=== PATIENT | female | born 1960 | race Caucasian/White ===

== ENCOUNTER 2016-10-18 08:16 | Emergency (ER) | payer OTHER ==
[~2016-10-18] VITALS: Ht 157.5 cm; Wt 62.7 kg
[2016-10-18 08:18] VITALS: BP 113/74; TEMP 97.9
[2016-10-18] MEDS ORDERED: CRINONE4% (08:21)
[2016-10-18] MEDS ORDERED: PROMETRIUM100 MG PO (08:22)
[2016-10-18] MEDS ORDERED: ESTRACE 1MG1 MG/TAB PO (08:22)
[2016-10-18] MEDS ORDERED: PROTONIX20 MG PO (08:22)
[2016-10-18 09:04] LABS: PH 6 (5-8); SQUAMOUS EPITHELIAL 0-2 /hpf; URINE APPEARANCE Clear; URINE BACTERIA None Seen /hpf; URINE BILIRUBIN Negative (NEGATIVE); URINE BLOOD Negative (NEGATIVE); URINE COLOR Colorless; URINE GLUCOSE Negative (NEGATIVE); URINE KETONE Negative (NEGATIVE); URINE RBC 0-2 /hpf; URINE UROBILINOGEN Negative (NEGATIVE); URINE WBC 0-2 /hpf
[2016-10-18 09:21] LABS: BASO # 0.1 (0.0-0.2); BASO % 1.8 % (0.0-2.0); EOS # 0.3 (0.0-0.7); EOS % 4.7 % (0-4.0); GRAN # 3.6 (1.4-6.5); GRAN % 64.1 % (42.2-75.2); HEMATOCRIT 39.2 % (37.0-47.0); HEMOGLOBIN 13.3 g/dl (12.5-16.0); LYMPH # 1.2 (1.2-3.4); LYMPH % 21.6 % (20.0-51.0); MEAN CELL VOLUME 87 fl (80.0-100.0); MEAN CORPUSCULAR HEMOGLOBIN 29 pg (27.0-31.0); MEAN CORPUSCULAR HGB CONC 34 g/dl (33.0-37.0); MEAN PLATELET VOLUME 9.5 fl (7.4-10.4); MONO # 0.4 (0.1-0.6); MONO % 7.3 % (1.7-9.3); PLATELET COUNT 337 K/mm3 (130-400); RED BLOOD COUNT 4.53 M/mm3 (4.10-5.30); REDCELL DISTRIBUTION WIDTH-CV 13.2 % (11.5-14.5); WHITE BLOOD COUNT 5.6 K/mm3 (4.8-10.8)
[2016-10-18 09:44] LABS: ADJUSTED CALCIUM 8.5 mg/dL (8.4-10.2); ALANINE AMINOTRANSFERASE 21 U/L (9-52); ALBUMIN 4.5 gm/dL (3.5-5.0); ALKALINE PHOSPHATASE 81 U/L (50-136); ANION GAP 14 mmol/L (7-16); BILIRUBIN,TOTAL 0.7 mg/dL (0.0-1.0); BLOOD UREA NITROGEN 8 mg/dL (7-17); CALCIUM 8.9 mg/dL (8.4-10.2); CARBON DIOXIDE 21 mmol/L (22-30); CHLORIDE 106 mmol/L (98-107); CREATININE, serum 0.68 mg/dL (0.52-1.25); GLUCOSE 74 mg/dL (74-106); POTASSIUM 4.1 mmol/L (3.4-5.0); SODIUM 141 mmol/L (137-145); TOTAL PROTEIN 7.2 gm/dL (6.4-8.2)
[2016-10-18] MEDS ORDERED: TYLENOL W/COD1 UDTAB PO (09:58)
[2016-10-18] MEDS ORDERED: VOLTAREN 75 DR75 MG PO (10:02)
[2016-10-18] MEDS ORDERED: FLEXERIL 1010 MG/TAB PO (10:02)
[2016-10-18 10:07] LABS: C-REACTIVE PROTEIN < 0.5 mg/dL (0.0-0.9)
[2016-10-18 10:09] VITALS: PULSE 66
== END 2016-10-18 10:10 | disposition home or self-care (01) ==
LOC: COL.ER 08:16
PROVIDERS: Emergency Medicine
DX: R10.9 Unspecified abdominal pain (principal); M54.9 Dorsalgia, unspecified; Z87.891 Personal history of nicotine dependence

== ENCOUNTER → 2017-04-03 | Outpatient (CLI) | payer OTHER ==
[~2017-04-03] MED LIST: CRINONE4%; ESTRACE 1MG1 MG/TAB PO; FLEXERIL 1010 MG/TAB PO; PROMETRIUM100 MG PO; PROTONIX20 MG PO; TYLENOL W/COD1 UDTAB PO; VOLTAREN 75 DR75 MG PO
== END ==
LOC: COL.RAD 08:53
DX: M51.36 Other intervertebral disc degeneration, lumbar region (principal); M51.16 Intervertebral disc disorders with radiculopathy, lumbar region; M48.061 Spinal stenosis, lumbar region without neurogenic claudication

== ENCOUNTER → 2017-07-10 | Outpatient (CLI) | payer OTHER ==
[2017-07-10 12:33] LABS: ALBUMIN 4.4 gm/dL (3.5-5.0); BILIRUBIN,TOTAL 0.3 mg/dL (0.0-1.0); CALCIUM 9.6 mg/dL (8.4-10.2); CHOLESTEROL RISK RATIO 2.6; CREATININE, serum 0.84 mg/dL (0.52-1.25); POTASSIUM 4.6 mmol/L (3.4-5.0); TOTAL PROTEIN 6.9 gm/dL (6.4-8.2)
== END ==
LOC: ZLAB.FHCC 12:05
DX: Z01.89 Encounter for other specified special examinations (principal)

== ENCOUNTER → 2017-07-24 | Outpatient (CLI) | payer OTHER | LOC: COL.RAD 07-17 09:45 | DX: M75.82 Other shoulder lesions, left shoulder (principal); M75.22 Bicipital tendinitis, left shoulder; M19.012 Primary osteoarthritis, left shoulder ==

== ENCOUNTER → 2017-08-10 | Outpatient (CLI) | payer OTHER | LOC: COL.RAD 10:08 | DX: N20.0 Calculus of kidney (principal); K76.0 Fatty (change of) liver, not elsewhere classified ==

== ENCOUNTER → 2017-09-04 | Outpatient (CLI) | payer OTHER ==
[2017-09-04 10:11] LABS: BASO # 0.1 (0.0-0.2); EOS # 0.3 (0.0-0.7); EOS % 5.1 % (0-4.0); GRAN # 3.2 (1.4-6.5); GRAN % 62.1 % (42.2-75.2); HEMATOCRIT 42.7 % (37.0-47.0); HEMOGLOBIN 13.8 g/dl (12.5-16.0); LYMPH # 1.3 (1.2-3.4); LYMPH % 24.9 % (20.0-51.0); MEAN CELL VOLUME 87 fl (80.0-100.0); MEAN CORPUSCULAR HEMOGLOBIN 28 pg (27.0-31.0); MEAN CORPUSCULAR HGB CONC 32 g/dl (33.0-37.0); MEAN PLATELET VOLUME 9.5 fl (7.4-10.4); MONO # 0.3 (0.1-0.6); MONO % 5.5 % (1.7-9.3); PLATELET COUNT 340 K/mm3 (130-400); RED BLOOD COUNT 4.89 M/mm3 (4.10-5.30); REDCELL DISTRIBUTION WIDTH-CV 13.3 % (11.5-14.5)
[2017-09-04 10:14] LABS: PROTHROMBIN TIME 11.1 SECONDS (9.7-12.8)
[2017-09-04 10:32] LABS: CREATININE, serum 0.78 mg/dL (0.52-1.25); POTASSIUM 4.4 mmol/L (3.4-5.0)
[2017-09-04 10:34] LABS: COLLECTION METHOD CLEAN CATCH
[2017-09-04 10:44] LABS: MUCOUS Present /lpf; PH 8 (5-8); URINE APPEARANCE Hazy; URINE BACTERIA None Seen /hpf; URINE BILIRUBIN Negative (NEGATIVE); URINE BLOOD Negative (NEGATIVE); URINE COLOR Yellow; URINE GLUCOSE Negative (NEGATIVE); URINE KETONE Negative (NEGATIVE); URINE LEUKOCYTE ESTERASE Trace (NEGATIVE); URINE NITRATE Negative (NEGATIVE); URINE PROTEIN(semi-quant) Negative (NEGATIVE); URINE RBC 0-2 /hpf; URINE UROBILINOGEN Negative (NEGATIVE)
== END ==
LOC: COL.CARD 09:12
DX: Z01.810 Encounter for preprocedural cardiovascular examination (principal)

== ENCOUNTER → 2017-09-25 | Outpatient (CLI) | payer OTHER | LOC: COL.RAD 09:36 | DX: R10.11 Right upper quadrant pain (principal) ==

== ENCOUNTER 2017-10-02 13:25 | Day surgery (SDC) | payer OTHER ==
[~2017-10-02] VITALS: Ht 154.9 cm; Wt 59.9 kg
[~2017-10-02 13:25] MED LIST changes: +PROTONIX 40MG T40 MG PO; -PROTONIX20 MG PO
[2017-10-02] MEDS ORDERED: ZYRTEC 10MG10 MG PO (13:51)
[2017-10-02] MEDS ORDERED: ZANTAC 150150 MG PO (13:51)
[2017-10-02] MEDS ORDERED: CARAFATE 1GM1 G PO (13:52)
[2017-10-02] MEDS ORDERED: AMITRIPTYLINE H25 M1 PO (13:53)
[2017-10-02 14:13] VITALS: BP 127/86; PULSE 89; TEMP 97.9
[2017-10-02 15:00] VITALS: BP 120/71; PULSE 92; TEMP 98
[2017-10-02 15:15] VITALS: BP 119/73; PULSE 90
[2017-10-02 15:50] VITALS: BP 109/74; PULSE 86
== END 2017-10-02 15:56 | disposition home or self-care (01) ==
LOC: SDCO 13:25
DX: K31.84 Gastroparesis (principal); K29.30 Chronic superficial gastritis without bleeding; K31.89 Other diseases of stomach and duodenum; Z79.899 Other long term (current) drug therapy; K21.9 Gastro-esophageal reflux disease without esophagitis; Z80.1 Family history of malignant neoplasm of trachea, bronchus and lung; Z80.8 Family history of malignant neoplasm of other organs or systems; K80.10 Calculus of gallbladder with chronic cholecystitis without obstruction
CPT/HCPCS: OP; J2250; J3010; J7030

== ENCOUNTER 2017-10-10 08:46 | Day surgery (SDC) | payer OTHER ==
[~2017-10-10] VITALS: Ht 154.9 cm; Wt 58.2 kg
[~2017-10-10 08:46] MED LIST changes: +AMITRIPTYLINE H25 M1 PO; +CARAFATE 1GM1 G PO; +ZANTAC 150150 MG PO; +ZYRTEC 10MG10 MG PO
[2017-10-10 09:28] VITALS: BP 118/86; PULSE 87; TEMP 98
[2017-10-10 12:12] VITALS: BP 102/66; PULSE 78; TEMP 97.3
[2017-10-10 12:30] VITALS: BP 106/66; PULSE 77
[2017-10-10 12:45] VITALS: BP 105/73; PULSE 72
[2017-10-10 13:00] VITALS: BP 114/72; PULSE 76
== END 2017-10-10 14:45 | disposition home or self-care (01) ==
LOC: SDCO 08:46
DX: K80.10 Calculus of gallbladder with chronic cholecystitis without obstruction (principal); K21.9 Gastro-esophageal reflux disease without esophagitis; F32.9 Major depressive disorder, single episode, unspecified; F41.9 Anxiety disorder, unspecified; Z79.52 Long term (current) use of systemic steroids; Z88.6 Allergy status to analgesic agent; Z80.1 Family history of malignant neoplasm of trachea, bronchus and lung; Z80.8 Family history of malignant neoplasm of other organs or systems
CPT/HCPCS: J0690; J1100; J1885; J2405; J2704; J3010; J7030; J7120

== ENCOUNTER 2017-10-17 16:48 | Emergency (ER) | payer OTHER ==
[~2017-10-17] VITALS: Ht 154.9 cm; Wt 58.2 kg
[2017-10-17 17:12] VITALS: TEMP 97
[2017-10-17 17:50] LABS: COLLECTION METHOD CLEAN CATCH
[2017-10-17 18:03] LABS: BASO # 0.1 (0.0-0.2); BASO % 1.2 % (0.0-2.0); EOS # 0.3 (0.0-0.7); EOS % 3.9 % (0-4.0); GRAN # 5.7 (1.4-6.5); GRAN % 68.3 % (42.2-75.2); HEMATOCRIT 40.5 % (37.0-47.0); HEMOGLOBIN 13.4 g/dl (12.5-16.0); LYMPH # 1.5 (1.2-3.4); LYMPH % 18.2 % (20.0-51.0); MEAN CELL VOLUME 85 fl (80.0-100.0); MEAN CORPUSCULAR HEMOGLOBIN 28 pg (27.0-31.0); MEAN CORPUSCULAR HGB CONC 33 g/dl (33.0-37.0); MEAN PLATELET VOLUME 9.3 fl (7.4-10.4); MONO # 0.7 (0.1-0.6); MONO % 7.7 % (1.7-9.3); PLATELET COUNT 283 K/mm3 (130-400); RED BLOOD COUNT 4.75 M/mm3 (4.10-5.30); REDCELL DISTRIBUTION WIDTH-CV 12.5 % (11.5-14.5)
[2017-10-17 18:06] LABS: PH 8 (5-8); SQUAMOUS EPITHELIAL 0-2 /hpf; URINE APPEARANCE Clear; URINE BACTERIA None Seen /hpf; URINE BILIRUBIN Negative (NEGATIVE); URINE BLOOD Negative (NEGATIVE); URINE COLOR Straw; URINE GLUCOSE Negative (NEGATIVE); URINE KETONE Negative (NEGATIVE); URINE LEUKOCYTE ESTERASE Negative (NEGATIVE); URINE NITRATE Negative (NEGATIVE); URINE PROTEIN(semi-quant) Negative (NEGATIVE); URINE RBC 0-2 /hpf; URINE UROBILINOGEN Negative (NEGATIVE)
[2017-10-17 18:08] LABS: ALBUMIN 3.9 gm/dL (3.5-5.0); BILIRUBIN,TOTAL 0.3 mg/dL (0.0-1.0); C-REACTIVE PROTEIN 0.8 mg/dL (0.0-0.9); CALCIUM 9.1 mg/dL (8.4-10.2); CREATININE, serum 0.77 mg/dL (0.52-1.25); POTASSIUM 4.1 mmol/L (3.4-5.0)
[2017-10-17 19:40] VITALS: BP 101/77; PULSE 83
== END 2017-10-17 19:40 | disposition home or self-care (01) ==
LOC: COL.ER 16:48
PROVIDERS: Emergency Medicine
DX: I95.1 Orthostatic hypotension (principal); E86.0 Dehydration; R19.7 Diarrhea, unspecified; K21.9 Gastro-esophageal reflux disease without esophagitis; Z90.49 Acquired absence of other specified parts of digestive tract; Z98.51 Tubal ligation status
CPT/HCPCS: J7030

== ENCOUNTER 2017-11-02 11:24 | Outpatient (RCR) | payer OTHER | END 2017-11-05 11:44 | disposition home or self-care (01) | LOC: MKS.ESL.PT 11:24 | DX: Z01.818 Encounter for other preprocedural examination (principal) ==

== ENCOUNTER 2017-11-12 07:08 | Day surgery (SDC) | payer SELFPAY ==
[~2017-11-12] VITALS: Ht 2021.8 cm; Wt 57.6 kg
[2017-11-12 08:12] VITALS: BP 133/71; PULSE 90; TEMP 97.4
[2017-11-12] MEDS ORDERED: FLEXERIL 1010 MG/TAB PO (08:20)
[2017-11-12] MEDS ORDERED: AMITRIPTYLINE H25 M1 PO (08:20)
[2017-11-12 13:10] VITALS: BP 135/79; PULSE 82; TEMP 97.3
[2017-11-12 13:35] VITALS: BP 156/79; PULSE 91
[2017-11-12 13:50] VITALS: BP 138/78; PULSE 88
[2017-11-12] MEDS ORDERED: NORCO 325 MG-7.1 TAB PO (13:54)
[2017-11-12] MEDS ORDERED: ROXICODONE 55 MG/TAB PO (13:55)
[2017-11-12 14:05] VITALS: BP 125/84; PULSE 84
== END 2017-11-12 15:17 | disposition home or self-care (01) ==
LOC: SDCO 07:08
DX: M75.112 Incomplete rotator cuff tear or rupture of left shoulder, not specified as traumatic (principal); M75.42 Impingement syndrome of left shoulder; M75.22 Bicipital tendinitis, left shoulder; K21.9 Gastro-esophageal reflux disease without esophagitis; Z79.899 Other long term (current) drug therapy; F32.9 Major depressive disorder, single episode, unspecified; F41.9 Anxiety disorder, unspecified; K76.0 Fatty (change of) liver, not elsewhere classified; K31.89 Other diseases of stomach and duodenum; M79.7 Fibromyalgia
CPT/HCPCS: C1713; J0171; J1100; J1885; J2370; J2405; J2704; J2765; J3010; J7050; J7120

== ENCOUNTER → 2017-12-28 | Outpatient (CLI) | payer OTHER ==
[~2017-12-28] MED LIST changes: +NORCO 325 MG-7.1 TAB PO; +ROXICODONE 55 MG/TAB PO
== END ==
LOC: COL.RAD 07:46
DX: K31.84 Gastroparesis (principal)
CPT/HCPCS: A9541

== ENCOUNTER → 2018-01-10 | Outpatient (CLI) | payer OTHER | LOC: COL.LAB 09:38 | DX: K31.84 Gastroparesis (principal) ==

== ENCOUNTER 2018-01-17 09:38 | Emergency (ER) | payer OTHER ==
[~2018-01-17] VITALS: Ht 154.9 cm; Wt 63.6 kg
[2018-01-17 09:42] VITALS: TEMP 98.3
[2018-01-17 10:18] LABS: BASO # 0.1 (0.0-0.2); BASO % 1.2 % (0.0-2.0); EOS # 0.2 (0.0-0.7); EOS % 2.5 % (0-4.0); GRAN # 5.2 (1.4-6.5); GRAN % 67.3 % (42.2-75.2); HEMOGLOBIN 11.9 g/dl (12.5-16.0); LYMPH # 1.7 (1.2-3.4); LYMPH % 21.4 % (20.0-51.0); MEAN CELL VOLUME 85 fl (80.0-100.0); MEAN CORPUSCULAR HEMOGLOBIN 28 pg (27.0-31.0); MEAN CORPUSCULAR HGB CONC 33 g/dl (33.0-37.0); MEAN PLATELET VOLUME 9.3 fl (7.4-10.4); MONO # 0.6 (0.1-0.6); MONO % 7.1 % (1.7-9.3); PLATELET COUNT 294 K/mm3 (130-400); RED BLOOD COUNT 4.27 M/mm3 (4.10-5.30); REDCELL DISTRIBUTION WIDTH-CV 13.6 % (11.5-14.5)
[2018-01-17 10:20] LABS: HEMATOCRIT 36.1 % (37.0-47.0)
[2018-01-17] MEDS ORDERED: AMOXICILLIN 50500 MG PO (10:22)
[2018-01-17 10:24] LABS: ALBUMIN 4.1 gm/dL (3.5-5.0); BILIRUBIN,TOTAL 0.2 mg/dL (0.0-1.0); CALCIUM 8.5 mg/dL (8.4-10.2); CREATININE, serum 0.65 mg/dL (0.52-1.25); POTASSIUM 3.9 mmol/L (3.4-5.0)
[2018-01-17 10:32] LABS: COLLECTION METHOD CLEAN CATCH
[2018-01-17 10:43] LABS: PH 6 (5-8); URINE APPEARANCE Clear; URINE BACTERIA None Seen /hpf; URINE BILIRUBIN Negative (NEGATIVE); URINE BLOOD Negative (NEGATIVE); URINE COLOR Straw; URINE GLUCOSE Negative (NEGATIVE); URINE KETONE Negative (NEGATIVE); URINE LEUKOCYTE ESTERASE Negative (NEGATIVE); URINE NITRATE Negative (NEGATIVE); URINE PROTEIN(semi-quant) Negative (NEGATIVE); URINE RBC 0-2 /hpf; URINE UROBILINOGEN Negative (NEGATIVE)
[2018-01-17 11:46] VITALS: BP 112/84; PULSE 85
== END 2018-01-17 11:45 | disposition home or self-care (01) ==
LOC: COL.ER 09:38
PROVIDERS: Emergency Medicine
DX: N20.0 Calculus of kidney (principal); K57.92 Diverticulitis of intestine, part unspecified, without perforation or abscess without bleeding; Z90.49 Acquired absence of other specified parts of digestive tract; Z88.6 Allergy status to analgesic agent
CPT/HCPCS: J2270; J2405; J7030; Q9967

== ENCOUNTER 2018-01-19 17:19 | Emergency (ER) | payer OTHER ==
[~2018-01-19] VITALS: Ht 154.9 cm; Wt 63.6 kg
[~2018-01-19 17:19] MED LIST changes: +AMOXICILLIN 50500 MG PO
[2018-01-19 17:28] VITALS: TEMP 98.9
[2018-01-19] MEDS ORDERED: REGLAN 5MG T5 MG/TAB PO (17:42)
[2018-01-19 17:50] LABS: COLLECTION METHOD CLEAN CATCH
[2018-01-19 17:56] LABS: BASO # 0.1 (0.0-0.2); BASO % 1.2 % (0.0-2.0); EOS # 0.2 (0.0-0.7); EOS % 2.7 % (0-4.0); GRAN # 4.5 (1.4-6.5); GRAN % 61.9 % (42.2-75.2); HEMOGLOBIN 11.7 g/dl (12.5-16.0); LYMPH # 1.8 (1.2-3.4); LYMPH % 25.2 % (20.0-51.0); MEAN CELL VOLUME 88 fl (80.0-100.0); MEAN CORPUSCULAR HEMOGLOBIN 29 pg (27.0-31.0); MEAN CORPUSCULAR HGB CONC 33 g/dl (33.0-37.0); MEAN PLATELET VOLUME 9.4 fl (7.4-10.4); MONO # 0.6 (0.1-0.6); MONO % 8.6 % (1.7-9.3); PLATELET COUNT 290 K/mm3 (130-400); REDCELL DISTRIBUTION WIDTH-CV 13.6 % (11.5-14.5)
[2018-01-19 17:57] LABS: HEMATOCRIT 35.9 % (37.0-47.0)
[2018-01-19 17:57] LABS: PH 6 (5-8); SQUAMOUS EPITHELIAL None Seen /hpf; URINE APPEARANCE Clear; URINE BACTERIA Rare /hpf; URINE BILIRUBIN Negative (NEGATIVE); URINE BLOOD Negative (NEGATIVE); URINE COLOR Straw; URINE GLUCOSE Negative (NEGATIVE); URINE KETONE Negative (NEGATIVE); URINE LEUKOCYTE ESTERASE Negative (NEGATIVE); URINE NITRATE Negative (NEGATIVE); URINE PROTEIN(semi-quant) Negative (NEGATIVE); URINE RBC None Seen /hpf; URINE UROBILINOGEN Negative (NEGATIVE)
[2018-01-19 18:13] LABS: BILIRUBIN,TOTAL 0.1 mg/dL (0.0-1.0); C-REACTIVE PROTEIN 1.2 mg/dL (0.0-0.9); CALCIUM 8.6 mg/dL (8.4-10.2); CREATININE, serum 0.65 mg/dL (0.52-1.25); POTASSIUM 3.7 mmol/L (3.4-5.0); TOTAL PROTEIN 6.8 gm/dL (6.4-8.2)
[2018-01-19] MEDS ORDERED: FLAGYL500 MG PO (20:10)
[2018-01-19] MEDS ORDERED: CIPRO 500MG TA500 MG PO (20:10)
[2018-01-19 20:29] VITALS: BP 107/64; PULSE 83
== END 2018-01-19 20:32 | disposition home or self-care (01) ==
LOC: COL.ER 17:19
PROVIDERS: Emergency Medicine
DX: R10.32 Left lower quadrant pain (principal)
CPT/HCPCS: J0780; J1170; J1885; J7030

== ENCOUNTER → 2018-01-21 | Outpatient (CLI) | payer OTHER ==
[~2018-01-21] MED LIST changes: +CIPRO 500MG TA500 MG PO; +FLAGYL500 MG PO; +REGLAN 5MG T5 MG/TAB PO
== END ==
LOC: COL.RAD 08:54
DX: R10.13 Epigastric pain (principal)

== ENCOUNTER 2018-01-24 11:36 | Emergency (ER) | payer SELFPAY ==
[~2018-01-24] VITALS: Ht 154.9 cm; Wt 64.5 kg
[2018-01-24 11:49] VITALS: TEMP 99
[2018-01-24 12:30] LABS: COLLECTION METHOD CLEAN CATCH
[2018-01-24 12:38] LABS: BASO # 0.1 (0.0-0.2); BASO % 1.1 % (0.0-2.0); EOS # 0.2 (0.0-0.7); EOS % 3.3 % (0-4.0); GRAN # 4.3 (1.4-6.5); GRAN % 68.1 % (42.2-75.2); HEMOGLOBIN 11.3 g/dl (12.5-16.0); LYMPH # 1.2 (1.2-3.4); LYMPH % 18.2 % (20.0-51.0); MEAN CELL VOLUME 87 fl (80.0-100.0); MEAN CORPUSCULAR HEMOGLOBIN 29 pg (27.0-31.0); MEAN CORPUSCULAR HGB CONC 33 g/dl (33.0-37.0); MEAN PLATELET VOLUME 9.1 fl (7.4-10.4); MONO # 0.6 (0.1-0.6); MONO % 8.7 % (1.7-9.3); PLATELET COUNT 252 K/mm3 (130-400); RED BLOOD COUNT 3.95 M/mm3 (4.10-5.30); REDCELL DISTRIBUTION WIDTH-CV 14.1 % (11.5-14.5)
[2018-01-24 12:39] LABS: PH 5 (5-8); URINE APPEARANCE Clear; URINE BACTERIA None Seen /hpf; URINE BILIRUBIN Negative (NEGATIVE); URINE BLOOD Negative (NEGATIVE); URINE COLOR Straw; URINE GLUCOSE Negative (NEGATIVE); URINE KETONE Negative (NEGATIVE); URINE LEUKOCYTE ESTERASE Negative (NEGATIVE); URINE NITRATE Negative (NEGATIVE); URINE PROTEIN(semi-quant) Negative (NEGATIVE); URINE RBC None Seen /hpf; URINE UROBILINOGEN Negative (NEGATIVE)
[2018-01-24 12:41] LABS: HEMATOCRIT 34.4 % (37.0-47.0)
[2018-01-24 12:56] LABS: ALBUMIN 3.5 gm/dL (3.5-5.0); BILIRUBIN,TOTAL 0.2 mg/dL (0.0-1.0); C-REACTIVE PROTEIN 1.1 mg/dL (0.0-0.9); CALCIUM 8.2 mg/dL (8.4-10.2); CREATININE, serum 0.92 mg/dL (0.52-1.25); POTASSIUM 4.3 mmol/L (3.4-5.0); TOTAL PROTEIN 6.2 gm/dL (6.4-8.2)
[2018-01-24 13:44] VITALS: BP 123/79; PULSE 94
== END 2018-01-24 13:44 | disposition home or self-care (01) ==
LOC: COL.ER 11:36
PROVIDERS: Physician Assistant
DX: R10.9 Unspecified abdominal pain (principal); Z98.51 Tubal ligation status; Z98.890 Other specified postprocedural states; Z87.891 Personal history of nicotine dependence; Z88.5 Allergy status to narcotic agent
CPT/HCPCS: J2270; J2550

== ENCOUNTER 2018-01-25 11:40 | Emergency (ER) | payer OTHER ==
[~2018-01-25] VITALS: Ht 154.9 cm; Wt 64.5 kg
[2018-01-25 11:48] VITALS: TEMP 98.4
[2018-01-25 12:13] LABS: COLLECTION METHOD CLEAN CATCH
[2018-01-25 12:17] LABS: BASO # 0.1 (0.0-0.2); BASO % 1.1 % (0.0-2.0); EOS # 0.2 (0.0-0.7); EOS % 2.7 % (0-4.0); GRAN # 5.1 (1.4-6.5); GRAN % 68.1 % (42.2-75.2); HEMATOCRIT 34.8 % (37.0-47.0); HEMOGLOBIN 11.5 g/dl (12.5-16.0); LYMPH # 1.2 (1.2-3.4); LYMPH % 16.4 % (20.0-51.0); MEAN CELL VOLUME 87 fl (80.0-100.0); MEAN CORPUSCULAR HEMOGLOBIN 29 pg (27.0-31.0); MEAN CORPUSCULAR HGB CONC 33 g/dl (33.0-37.0); MEAN PLATELET VOLUME 9.1 fl (7.4-10.4); MONO # 0.8 (0.1-0.6); MONO % 11.2 % (1.7-9.3); PLATELET COUNT 267 K/mm3 (130-400); REDCELL DISTRIBUTION WIDTH-CV 14.1 % (11.5-14.5)
[2018-01-25 12:20] LABS: MUCOUS Present /lpf; PH 6 (5-8); URINE APPEARANCE Clear; URINE BACTERIA Rare /hpf; URINE BILIRUBIN Negative (NEGATIVE); URINE BLOOD Negative (NEGATIVE); URINE COLOR Yellow; URINE GLUCOSE Negative (NEGATIVE); URINE KETONE Negative (NEGATIVE); URINE LEUKOCYTE ESTERASE Trace (NEGATIVE); URINE NITRATE Negative (NEGATIVE); URINE PROTEIN(semi-quant) Negative (NEGATIVE); URINE RBC 0-2 /hpf; URINE UROBILINOGEN >=4.0 mg/dL (NEGATIVE)
[2018-01-25 12:29] LABS: ALBUMIN 3.7 gm/dL (3.5-5.0); BILIRUBIN,TOTAL 0.4 mg/dL (0.0-1.0); C-REACTIVE PROTEIN 1.5 mg/dL (0.0-0.9); CREATININE, serum 0.78 mg/dL (0.52-1.25); POTASSIUM 4.2 mmol/L (3.4-5.0); TOTAL PROTEIN 6.4 gm/dL (6.4-8.2)
[2018-01-25 13:12] VITALS: BP 127/76; PULSE 94
== END 2018-01-25 13:13 | disposition home or self-care (01) ==
LOC: COL.ER 11:40
PROVIDERS: Family Medicine
DX: R10.13 Epigastric pain (principal); R74.0 Nonspecific elevation of levels of transaminase and lactic acid dehydrogenase [LDH]; R10.11 Right upper quadrant pain; Z90.49 Acquired absence of other specified parts of digestive tract; Z87.891 Personal history of nicotine dependence
CPT/HCPCS: J2270; J2550

== ENCOUNTER 2018-01-27 07:07 | Emergency (ER) | payer OTHER ==
[~2018-01-27] VITALS: Ht 154.9 cm; Wt 64.5 kg
[2018-01-27 07:11] VITALS: TEMP 98.2
[2018-01-27 07:51] LABS: BASO # 0.1 (0.0-0.2); BASO % 1.3 % (0.0-2.0); EOS # 0.2 (0.0-0.7); GRAN # 3.8 (1.4-6.5); GRAN % 72.1 % (42.2-75.2); HEMATOCRIT 37.2 % (37.0-47.0); HEMOGLOBIN 12.1 g/dl (12.5-16.0); LYMPH # 0.8 (1.2-3.4); LYMPH % 15.4 % (20.0-51.0); MEAN CELL VOLUME 87 fl (80.0-100.0); MEAN CORPUSCULAR HEMOGLOBIN 28 pg (27.0-31.0); MEAN CORPUSCULAR HGB CONC 33 g/dl (33.0-37.0); MEAN PLATELET VOLUME 9.4 fl (7.4-10.4); MONO # 0.4 (0.1-0.6); MONO % 7.6 % (1.7-9.3); PLATELET COUNT 277 K/mm3 (130-400); RED BLOOD COUNT 4.26 M/mm3 (4.10-5.30); REDCELL DISTRIBUTION WIDTH-CV 14.2 % (11.5-14.5)
[2018-01-27 08:03] LABS: ALBUMIN 3.9 gm/dL (3.5-5.0); BILIRUBIN,TOTAL 0.2 mg/dL (0.0-1.0); C-REACTIVE PROTEIN 1.1 mg/dL (0.0-0.9); CALCIUM 8.8 mg/dL (8.4-10.2); CREATININE, serum 0.72 mg/dL (0.52-1.25); POTASSIUM 3.9 mmol/L (3.4-5.0); TOTAL PROTEIN 6.9 gm/dL (6.4-8.2)
[2018-01-27 08:53] LABS: COLLECTION METHOD CLEAN CATCH
[2018-01-27 08:58] LABS: PH 5 (5-8); SQUAMOUS EPITHELIAL 0-2 /hpf; URINE APPEARANCE Clear; URINE BACTERIA None Seen /hpf; URINE BILIRUBIN Negative (NEGATIVE); URINE BLOOD Negative (NEGATIVE); URINE COLOR Straw; URINE GLUCOSE Negative (NEGATIVE); URINE KETONE Negative (NEGATIVE); URINE LEUKOCYTE ESTERASE Negative (NEGATIVE); URINE NITRATE Negative (NEGATIVE); URINE PROTEIN(semi-quant) Negative (NEGATIVE); URINE RBC 0-2 /hpf; URINE UROBILINOGEN Negative (NEGATIVE)
[2018-01-27 09:18] VITALS: BP 130/66; PULSE 88
== END 2018-01-27 09:22 | disposition home or self-care (01) ==
LOC: COL.ER 07:07
PROVIDERS: Emergency Medicine
DX: K57.92 Diverticulitis of intestine, part unspecified, without perforation or abscess without bleeding (principal); K21.9 Gastro-esophageal reflux disease without esophagitis; Z90.49 Acquired absence of other specified parts of digestive tract
CPT/HCPCS: J2405; J3010; J7030

== ENCOUNTER → 2018-01-29 | Outpatient (CLI) | payer OTHER ==
[2018-01-29 14:46] LABS: BASO # 0.1 (0.0-0.2); BASO % 1.2 % (0.0-2.0); EOS # 0.2 (0.0-0.7); EOS % 2.7 % (0-4.0); GRAN # 5.2 (1.4-6.5); GRAN % 67.8 % (42.2-75.2); HEMATOCRIT 41.4 % (37.0-47.0); HEMOGLOBIN 13.6 g/dl (12.5-16.0); LYMPH # 1.6 (1.2-3.4); LYMPH % 20.1 % (20.0-51.0); MEAN CELL VOLUME 86 fl (80.0-100.0); MEAN CORPUSCULAR HEMOGLOBIN 28 pg (27.0-31.0); MEAN CORPUSCULAR HGB CONC 33 g/dl (33.0-37.0); MONO # 0.6 (0.1-0.6); MONO % 7.4 % (1.7-9.3); RED BLOOD COUNT 4.79 M/mm3 (4.10-5.30)
[2018-01-29 14:48] LABS: PLATELET COUNT 380 K/mm3 (130-400)
[2018-01-29 15:06] LABS: BILIRUBIN,DIRECT 0.4 mg/dL (0.0-0.4); BILIRUBIN,TOTAL 0.4 mg/dL (0.0-1.0); TOTAL PROTEIN 6.8 gm/dL (6.4-8.2)
== END ==
LOC: ZCOL.LAB 14:38
PROVIDERS: Nurse Practitioner Family
DX: R10.9 Unspecified abdominal pain (principal)

== ENCOUNTER 2018-01-31 08:05 | Emergency (ER) | payer OTHER ==
[~2018-01-31] VITALS: Ht 154.9 cm; Wt 65.0 kg
[2018-01-31 08:27] LABS: COLLECTION METHOD CLEAN CATCH
[2018-01-31 08:38] LABS: PH 6 (5-8); SQUAMOUS EPITHELIAL 0-2 /hpf; URINE APPEARANCE Clear; URINE BACTERIA None Seen /hpf; URINE BILIRUBIN Negative (NEGATIVE); URINE BLOOD 2+ (NEGATIVE); URINE COLOR Colorless; URINE GLUCOSE Negative (NEGATIVE); URINE KETONE Negative (NEGATIVE); URINE LEUKOCYTE ESTERASE Negative (NEGATIVE); URINE NITRATE Negative (NEGATIVE); URINE PROTEIN(semi-quant) Negative (NEGATIVE); URINE RBC None Seen /hpf; URINE UROBILINOGEN Negative (NEGATIVE)
[2018-01-31 09:22] LABS: BASO # 0.1 (0.0-0.2); BASO % 1.6 % (0.0-2.0); EOS # 0.2 (0.0-0.7); EOS % 2.7 % (0-4.0); GRAN % 62.5 % (42.2-75.2); HEMATOCRIT 37.6 % (37.0-47.0); HEMOGLOBIN 12.3 g/dl (12.5-16.0); LYMPH # 1.5 (1.2-3.4); LYMPH % 23.1 % (20.0-51.0); MEAN CELL VOLUME 87 fl (80.0-100.0); MEAN CORPUSCULAR HEMOGLOBIN 28 pg (27.0-31.0); MEAN CORPUSCULAR HGB CONC 33 g/dl (33.0-37.0); MEAN PLATELET VOLUME 9.2 fl (7.4-10.4); MONO # 0.6 (0.1-0.6); MONO % 9.3 % (1.7-9.3); PLATELET COUNT 327 K/mm3 (130-400); RED BLOOD COUNT 4.34 M/mm3 (4.10-5.30); REDCELL DISTRIBUTION WIDTH-CV 13.7 % (11.5-14.5)
[2018-01-31 09:32] LABS: BILIRUBIN,TOTAL 0.2 mg/dL (0.0-1.0); CALCIUM 8.8 mg/dL (8.4-10.2); CREATININE, serum 0.66 mg/dL (0.52-1.25); POTASSIUM 3.9 mmol/L (3.4-5.0); TOTAL PROTEIN 6.9 gm/dL (6.4-8.2)
[2018-01-31 10:38] VITALS: BP 118/80; PULSE 91; TEMP 97.2
== END 2018-01-31 10:38 | disposition home or self-care (01) ==
LOC: COL.ER 08:05
PROVIDERS: Nurse Practitioner
DX: R10.30 Lower abdominal pain, unspecified (principal); Z87.442 Personal history of urinary calculi; Z98.51 Tubal ligation status; Z88.5 Allergy status to narcotic agent; Z87.891 Personal history of nicotine dependence

== ENCOUNTER → 2018-02-08 | Outpatient (CLI) | payer OTHER | LOC: MC.RAD 08:40 | DX: Z12.31 Encounter for screening mammogram for malignant neoplasm of breast (principal) ==

== ENCOUNTER → 2018-02-14 | Outpatient (CLI) | payer OTHER | LOC: COL.RAD 02-11 09:45 | DX: N95.0 Postmenopausal bleeding (principal); R10.9 Unspecified abdominal pain; R93.8 Abnormal findings on diagnostic imaging of other specified body structures ==

== ENCOUNTER 2018-02-26 08:15 | Outpatient (RCR) | payer OTHER | END 2018-02-27 | disposition home or self-care (01) | LOC: MKS.ESL.PT | DX: Z47.89 Encounter for other orthopedic aftercare (principal) ==

== ENCOUNTER → 2018-02-26 | Outpatient (CLI) | payer OTHER ==
[2018-02-26 09:55] LABS: ALANINE AMINOTRANSFERASE 28 U/L (9-52); ALKALINE PHOSPHATASE 120 U/L (50-136); AST,SGOT 27 U/L (15-37); BILIRUBIN,TOTAL < 0.1 mg/dL (0.0-1.0)
== END ==
LOC: COL.LAB 09:20
PROVIDERS: Internal Medicine Gastroenterology
DX: K58.2 Mixed irritable bowel syndrome (principal); K31.84 Gastroparesis

== ENCOUNTER 2018-03-14 08:15 | Outpatient (RCR) | payer OTHER ==
[2018-04-23] MEDS ORDERED: RELAFEN 50500 MG/TAB PO (11:34)
[2018-04-23] MEDS ORDERED: CIPRO 500MG TA500 MG PO (11:47)
[2018-04-23] MEDS ORDERED: FLAGYL500 MG PO (11:47)
[2018-04-23] MEDS ORDERED: FLEXERIL 1010 MG/TAB PO (11:47)
[2018-04-27] MEDS ORDERED: NEURONTIN300 MG/CAP PO (14:25)
[2018-05-01] MEDS ORDERED: LIDODERM 5% PATC1 EA TP (15:12)
[2018-05-08] MEDS ORDERED: NORCO 325 MG-51 TAB PO (17:34)
== END 2018-05-29 | disposition home or self-care (01) ==
LOC: MKS.ESL.PT
DX: Z47.89 Encounter for other orthopedic aftercare (principal)

== ENCOUNTER 2018-04-20 12:36 | Emergency (ER) | payer SELFPAY ==
[~2018-04-20] VITALS: Ht 154.9 cm; Wt 68.6 kg
[2018-04-20 12:49] VITALS: TEMP 98
[2018-04-20 13:19] LABS: COLLECTION METHOD CLEAN CATCH
[2018-04-20 13:28] LABS: PH 6 (5-8); URINE APPEARANCE Clear; URINE BACTERIA None Seen /hpf; URINE BILIRUBIN Negative (NEGATIVE); URINE BLOOD Negative (NEGATIVE); URINE COLOR Yellow; URINE GLUCOSE Negative (NEGATIVE); URINE KETONE Negative (NEGATIVE); URINE LEUKOCYTE ESTERASE Negative (NEGATIVE); URINE NITRATE Negative (NEGATIVE); URINE PROTEIN(semi-quant) Negative (NEGATIVE); URINE RBC 0-2 /hpf; URINE UROBILINOGEN Negative (NEGATIVE)
[2018-04-20 13:54] LABS: BASO # 0.1 (0.0-0.2); BASO % 1.2 % (0.0-2.0); EOS # 0.2 (0.0-0.7); GRAN % 67.2 % (42.2-75.2); HEMATOCRIT 38.3 % (37.0-47.0); HEMOGLOBIN 12.7 g/dl (12.5-16.0); LYMPH # 1.6 (1.2-3.4); LYMPH % 21.3 % (20.0-51.0); MEAN CELL VOLUME 87 fl (80.0-100.0); MEAN CORPUSCULAR HEMOGLOBIN 29 pg (27.0-31.0); MEAN CORPUSCULAR HGB CONC 33 g/dl (33.0-37.0); MEAN PLATELET VOLUME 9.6 fl (7.4-10.4); MONO # 0.5 (0.1-0.6); MONO % 6.9 % (1.7-9.3); PLATELET COUNT 308 K/mm3 (130-400); RED BLOOD COUNT 4.39 M/mm3 (4.10-5.30); REDCELL DISTRIBUTION WIDTH-CV 12.6 % (11.5-14.5)
[2018-04-20 14:07] LABS: ALBUMIN 4.3 gm/dL (3.5-5.0); BILIRUBIN,TOTAL 0.3 mg/dL (0.0-1.0); C-REACTIVE PROTEIN 0.8 mg/dL (0.0-0.9); CALCIUM 8.9 mg/dL (8.4-10.2); CREATININE, serum 0.74 mg/dL (0.52-1.25); TOTAL PROTEIN 7.2 gm/dL (6.4-8.2)
[2018-04-20 15:29] VITALS: BP 124/74; PULSE 85
== END 2018-04-20 15:31 | disposition home or self-care (01) ==
LOC: COL.ER 12:36
PROVIDERS: Nurse Practitioner
DX: N20.1 Calculus of ureter (principal); K21.9 Gastro-esophageal reflux disease without esophagitis; Z88.5 Allergy status to narcotic agent; Z98.890 Other specified postprocedural states; Z90.49 Acquired absence of other specified parts of digestive tract
CPT/HCPCS: J1885; J2405; J3010; J7030; Q9967

== ENCOUNTER 2018-04-27 13:48 | Emergency (ER) | payer SELFPAY ==
[~2018-04-27] VITALS: Ht 154.9 cm; Wt 70.0 kg
[~2018-04-27 13:48] MED LIST changes: +RELAFEN 50500 MG/TAB PO
[2018-04-27 13:52] VITALS: BP 146/71; TEMP 97.5
[2018-04-27] MEDS ORDERED: NEURONTIN300 MG/CAP PO (14:25)
[2018-04-27 14:29] LABS: COLLECTION METHOD CLEAN CATCH
[2018-04-27 14:58] LABS: PH 7 (5-8); SQUAMOUS EPITHELIAL 0-2 /hpf; URINE APPEARANCE Clear; URINE BACTERIA Rare /hpf; URINE BILIRUBIN Negative (NEGATIVE); URINE BLOOD Negative (NEGATIVE); URINE COLOR Colorless; URINE GLUCOSE Negative (NEGATIVE); URINE KETONE Negative (NEGATIVE); URINE LEUKOCYTE ESTERASE Negative (NEGATIVE); URINE NITRATE Negative (NEGATIVE); URINE PROTEIN(semi-quant) Negative (NEGATIVE); URINE RBC 0-2 /hpf; URINE UROBILINOGEN Negative (NEGATIVE)
[2018-04-27 15:10] VITALS: PULSE 100
== END 2018-04-27 15:10 | disposition home or self-care (01) ==
LOC: COL.ER 13:48
PROVIDERS: Family Medicine
DX: M54.16 Radiculopathy, lumbar region (principal); Z79.52 Long term (current) use of systemic steroids
CPT/HCPCS: J1170; J2550

== ENCOUNTER 2018-05-01 13:33 | Emergency (ER) | payer SELFPAY ==
[~2018-05-01] VITALS: Ht 154.9 cm; Wt 70.0 kg
[~2018-05-01 13:33] MED LIST changes: +NEURONTIN300 MG/CAP PO
[2018-05-01 13:40] VITALS: BP 153/74; TEMP 98
[2018-05-01] MEDS ORDERED: LIDODERM 5% PATC1 EA TP (15:12)
[2018-05-01 15:16] VITALS: PULSE 75
== END 2018-05-01 15:16 | disposition home or self-care (01) ==
LOC: COL.ER 13:33
DX: G89.29 Other chronic pain (principal); M54.5 Low back pain; Z87.891 Personal history of nicotine dependence; Z90.49 Acquired absence of other specified parts of digestive tract
CPT/HCPCS: J1885

== ENCOUNTER 2018-05-04 12:33 | Emergency (ER) | payer SELFPAY ==
[~2018-05-04] VITALS: Ht 154.9 cm; Wt 72.3 kg
[~2018-05-04 12:33] MED LIST changes: +LIDODERM 5% PATC1 EA TP
[2018-05-04 12:37] VITALS: TEMP 98
[2018-05-04 14:30] VITALS: BP 133/70; PULSE 82
== END 2018-05-04 14:31 | disposition home or self-care (01) ==
LOC: COL.ER 12:33
DX: G89.29 Other chronic pain (principal); Z90.49 Acquired absence of other specified parts of digestive tract; M54.5 Low back pain; Z87.891 Personal history of nicotine dependence; Z98.51 Tubal ligation status; Z98.890 Other specified postprocedural states
CPT/HCPCS: J1885; J2360

== ENCOUNTER → 2018-05-07 | Outpatient (CLI) | payer SELFPAY ==
[~2018-05-07] MED LIST changes: +NORCO 325 MG-51 TAB PO
== END ==
LOC: COL.RAD 08:46
DX: M51.16 Intervertebral disc disorders with radiculopathy, lumbar region (principal)

== ENCOUNTER 2018-05-08 16:06 | Emergency (ER) | payer SELFPAY ==
[~2018-05-08] VITALS: Ht 154.9 cm; Wt 72.7 kg
[~2018-05-08 16:06] MED LIST changes: -NORCO 325 MG-51 TAB PO
[2018-05-08 16:17] VITALS: BP 155/72; PULSE 88; TEMP 98
[2018-05-08] MEDS ORDERED: NORCO 325 MG-51 TAB PO (17:34)
== END 2018-05-08 17:57 | disposition home or self-care (01) ==
LOC: COL.ER 16:06
DX: M54.5 Low back pain (principal); G89.29 Other chronic pain
CPT/HCPCS: J2270; J2360

== ENCOUNTER 2018-05-14 11:57 | Emergency (ER) | payer SELFPAY ==
[~2018-05-14] VITALS: Ht 154.9 cm; Wt 72.3 kg
[~2018-05-14 11:57] MED LIST changes: +NORCO 325 MG-51 TAB PO
[2018-05-14 14:08] VITALS: BP 133/77; PULSE 77; TEMP 98.5
== END 2018-05-14 14:10 | disposition home or self-care (01) ==
LOC: COL.ER 11:57
DX: G89.29 Other chronic pain (principal); M54.5 Low back pain
CPT/HCPCS: J1885; J2360

== ENCOUNTER 2018-05-21 12:36 | Emergency (ER) | payer SELFPAY ==
[~2018-05-21] VITALS: Ht 154.9 cm; Wt 72.3 kg
[2018-05-21 12:39] VITALS: BP 127/77; TEMP 97.8
[2018-05-21 13:08] VITALS: PULSE 78
== END 2018-05-21 13:08 | disposition home or self-care (01) ==
LOC: COL.ER 12:36
DX: M54.5 Low back pain (principal); G89.29 Other chronic pain; Z98.51 Tubal ligation status; Z98.890 Other specified postprocedural states; Z87.891 Personal history of nicotine dependence; Z88.5 Allergy status to narcotic agent
CPT/HCPCS: J1885; J2360

== ENCOUNTER → 2018-05-31 | Outpatient (CLI) | payer OTHER ==
[2018-05-31 08:43] LABS: ALBUMIN 4.1 gm/dL (3.5-5.0); BILIRUBIN,TOTAL 0.3 mg/dL (0.0-1.0); CALCIUM 9.3 mg/dL (8.4-10.2); CREATININE, serum 0.76 mg/dL (0.52-1.25); POTASSIUM 4.3 mmol/L (3.4-5.0); TOTAL PROTEIN 6.9 gm/dL (6.4-8.2)
== END ==
LOC: COL.LAB 08:06
PROVIDERS: Nurse Practitioner Family
DX: K31.84 Gastroparesis (principal); R94.5 Abnormal results of liver function studies

== ENCOUNTER 2018-06-04 13:17 | Emergency (ER) | payer OTHER ==
[~2018-06-04] VITALS: Ht 154.9 cm; Wt 72.3 kg
[2018-06-04 13:24] VITALS: TEMP 98.1
[2018-06-04 14:24] VITALS: BP 137/84; PULSE 94
== END 2018-06-04 14:25 | disposition home or self-care (01) ==
LOC: COL.ER 13:17
DX: M54.10 Radiculopathy, site unspecified (principal); Z87.891 Personal history of nicotine dependence
CPT/HCPCS: J1885; J2360

== ENCOUNTER 2018-06-21 07:48 | Emergency (ER) | payer OTHER ==
[~2018-06-21] VITALS: Ht 154.9 cm; Wt 72.7 kg
[2018-06-21 07:53] VITALS: BP 114/58
[2018-06-21] MEDS ORDERED: EC-NAPROSYN500 MG PO (08:03)
[2018-06-21] MEDS ORDERED: AMOXICILLIN 8751 TAB PO (08:20)
[2018-06-21 08:25] VITALS: PULSE 79; TEMP 96.7
== END 2018-06-21 08:25 | disposition home or self-care (01) ==
LOC: COL.ER 07:48
DX: R68.84 Jaw pain (principal); Z98.51 Tubal ligation status; Z87.891 Personal history of nicotine dependence; Z88.5 Allergy status to narcotic agent; Z90.49 Acquired absence of other specified parts of digestive tract

== ENCOUNTER → 2018-07-02 | Outpatient (CLI) | payer OTHER ==
[~2018-07-02] MED LIST changes: +AMOXICILLIN 8751 TAB PO; +EC-NAPROSYN500 MG PO
== END ==
LOC: COL.RAD 12:36
DX: N93.9 Abnormal uterine and vaginal bleeding, unspecified (principal); J32.9 Chronic sinusitis, unspecified; R93.89 Abnormal findings on diagnostic imaging of other specified body structures

== ENCOUNTER 2018-07-09 12:33 | Emergency (ER) | payer OTHER ==
[~2018-07-09] VITALS: Ht 154.9 cm; Wt 72.3 kg
[2018-07-09 12:54] VITALS: BP 138/74; PULSE 88; TEMP 97.8
== END 2018-07-09 15:54 | disposition left against medical advice (07) ==
LOC: COL.ER 12:33
DX: M54.5 Low back pain (principal)

== ENCOUNTER → 2018-07-22 | Outpatient (CLI) | payer OTHER | LOC: MHCPAIN 08:14 | DX: G89.29 Other chronic pain (principal); M47.817 Spondylosis without myelopathy or radiculopathy, lumbosacral region; M53.3 Sacrococcygeal disorders, not elsewhere classified; M79.2 Neuralgia and neuritis, unspecified ==

== ENCOUNTER → 2018-07-23 | Outpatient (CLI) | payer OTHER | LOC: ZLAB.FHCC 17:45 | DX: Z01.89 Encounter for other specified special examinations (principal) ==

== ENCOUNTER → 2018-08-14 | Outpatient (CLI) | payer OTHER ==
[2018-08-14 14:48] LABS: HEMATOCRIT 39.4 % (37.0-47.0); HEMOGLOBIN 12.7 g/dl (12.5-16.0); MEAN CELL VOLUME 88 fl (80.0-100.0); MEAN CORPUSCULAR HEMOGLOBIN 28 pg (27.0-31.0); MEAN CORPUSCULAR HGB CONC 32 g/dl (33.0-37.0); MEAN PLATELET VOLUME 9.2 fl (7.4-10.4); PLATELET COUNT 309 K/mm3 (130-400); RED BLOOD COUNT 4.48 M/mm3 (4.10-5.30); REDCELL DISTRIBUTION WIDTH-CV 13.7 % (11.5-14.5)
[2018-08-14 15:10] LABS: ERYTHROCYTE SEDIMENTATION RATE 2 mm/hr (0-30)
== END ==
LOC: COL.LAB 14:30
PROVIDERS: Internal Medicine
DX: R51 Headache (principal)

== ENCOUNTER 2018-08-19 10:44 | Emergency (ER) | payer OTHER ==
[~2018-08-19] VITALS: Ht 154.9 cm; Wt 72.3 kg
[2018-08-19 11:05] VITALS: TEMP 97.9
[2018-08-19 13:40] LABS: HEMATOCRIT 40.7 % (37.0-47.0); HEMOGLOBIN 13.1 g/dl (12.5-16.0); MEAN CELL VOLUME 89 fl (80.0-100.0); MEAN CORPUSCULAR HEMOGLOBIN 29 pg (27.0-31.0); MEAN CORPUSCULAR HGB CONC 32 g/dl (33.0-37.0); MEAN PLATELET VOLUME 9.7 fl (7.4-10.4); PLATELET COUNT 336 K/mm3 (130-400); RED BLOOD COUNT 4.56 M/mm3 (4.10-5.30); REDCELL DISTRIBUTION WIDTH-CV 13.9 % (11.5-14.5)
[2018-08-19 13:42] LABS: ALANINE AMINOTRANSFERASE 61 U/L (9-52); ALBUMIN 4.5 gm/dL (3.5-5.0); ALKALINE PHOSPHATASE 83 U/L (50-136); ANION GAP 10 mmol/L (7-16); AST,SGOT 44 U/L (15-37); BILIRUBIN,TOTAL 0.3 mg/dL (0.0-1.0); BLOOD UREA NITROGEN 16 mg/dL (7-17); C-REACTIVE PROTEIN < 0.5 mg/dL (0.0-0.9); CALCIUM 9.7 mg/dL (8.4-10.2); CARBON DIOXIDE 26 mmol/L (22-30); CHLORIDE 101 mmol/L (98-107); CREATININE, serum 0.76 mg/dL (0.52-1.25); GLUCOSE 87 mg/dL (74-106); LIPASE 61 U/L (23-300); MAGNESIUM 2.1 mg/dL (1.6-2.3); PHOSPHOROUS 3.9 mg/dL (2.5-4.5); POTASSIUM 4.6 mmol/L (3.4-5.0); SODIUM 137 mmol/L (137-145); TOTAL PROTEIN 7.6 gm/dL (6.4-8.2)
[2018-08-19 13:55] LABS: TROPONIN-I < 0.012 ng/mL (0.000-0.035)
[2018-08-19 14:00] LABS: ANISOCYTOSIS 1+; BAND 1 % (0-10); LYMPHOCYTE 11 % (20.0-51.0); NEUTROPHILS 87 % (42.0-75.2); PLATELET ESTIMATE NORMAL (NORMAL)
[2018-08-19 14:10] LABS: ERYTHROCYTE SEDIMENTATION RATE 4 mm/hr (0-30)
[2018-08-19] MEDS ORDERED: FIORICET 325 MG1 TA1 PO (15:50)
[2018-08-19 16:08] VITALS: BP 151/88; PULSE 78
== END 2018-08-19 16:10 | disposition home or self-care (01) ==
LOC: COL.ER 10:44
PROVIDERS: Emergency Medicine
DX: R51 Headache (principal)
CPT/HCPCS: J1170; J1200; J7030; J7512

== ENCOUNTER 2018-08-21 09:29 | Emergency (ER) | payer OTHER ==
[~2018-08-21] VITALS: Ht 154.9 cm; Wt 72.3 kg
[~2018-08-21 09:29] MED LIST changes: +FIORICET 325 MG1 TA1 PO
[2018-08-21 09:33] VITALS: BP 153/79; TEMP 97.9
[2018-08-21 10:13] LABS: BASO % 0.1 % (0.0-2.0); EOS % 0.1 % (0-4.0); GRAN # 9.6 (1.4-6.5); GRAN % 89.9 % (42.2-75.2); HEMATOCRIT 39.9 % (37.0-47.0); HEMOGLOBIN 12.9 g/dl (12.5-16.0); LYMPH # 0.7 (1.2-3.4); LYMPH % 6.3 % (20.0-51.0); MEAN CELL VOLUME 89 fl (80.0-100.0); MEAN CORPUSCULAR HEMOGLOBIN 29 pg (27.0-31.0); MEAN CORPUSCULAR HGB CONC 32 g/dl (33.0-37.0); MEAN PLATELET VOLUME 9.4 fl (7.4-10.4); MONO # 0.2 (0.1-0.6); MONO % 1.4 % (1.7-9.3); PLATELET COUNT 322 K/mm3 (130-400); RED BLOOD COUNT 4.51 M/mm3 (4.10-5.30); REDCELL DISTRIBUTION WIDTH-CV 13.9 % (11.5-14.5)
[2018-08-21 10:26] LABS: ALBUMIN 4.6 gm/dL (3.5-5.0); BILIRUBIN,TOTAL 0.3 mg/dL (0.0-1.0); CALCIUM 9.4 mg/dL (8.4-10.2); CREATININE, serum 0.8 mg/dL (0.52-1.25); POTASSIUM 4.5 mmol/L (3.4-5.0); TOTAL PROTEIN 7.5 gm/dL (6.4-8.2)
[2018-08-21 10:28] LABS: C-REACTIVE PROTEIN 0.5 mg/dL (0.0-0.9)
[2018-08-21 10:51] LABS: ERYTHROCYTE SEDIMENTATION RATE 4 mm/hr (0-30)
[2018-08-21 11:50] VITALS: PULSE 88
== END 2018-08-21 11:50 | disposition home or self-care (01) ==
LOC: COL.ER 09:29
PROVIDERS: Physician Assistant
DX: T50.905A Adverse effect of unspecified drugs, medicaments and biological substances, initial encounter (principal); G24.01 Drug induced subacute dyskinesia; R51 Headache; R20.2 Paresthesia of skin; Z90.49 Acquired absence of other specified parts of digestive tract; Z88.5 Allergy status to narcotic agent; Z87.891 Personal history of nicotine dependence
CPT/HCPCS: J1200; J1885; J7030

== ENCOUNTER 2018-09-09 16:15 | Emergency (ER) | payer OTHER ==
[~2018-09-09] VITALS: Ht 154.9 cm; Wt 74.1 kg
[2018-09-09 16:20] VITALS: TEMP 98
[2018-09-09] MEDS ORDERED: NEURONTIN300 MG/CAP PO (16:41)
[2018-09-09] MEDS ORDERED: PREDNISONE20 MG PO (16:47)
[2018-09-09 17:08] VITALS: BP 147/72; PULSE 102
== END 2018-09-09 17:10 | disposition home or self-care (01) ==
LOC: COL.ER 16:15
DX: R20.2 Paresthesia of skin (principal); Z87.19 Personal history of other diseases of the digestive system; Z90.49 Acquired absence of other specified parts of digestive tract; Z87.891 Personal history of nicotine dependence
CPT/HCPCS: J1885

== ENCOUNTER 2018-09-16 16:56 | Emergency (ER) | payer OTHER ==
[~2018-09-16 16:56] MED LIST changes: +PREDNISONE20 MG PO
[2018-09-16 17:05] VITALS: BP 145/75; TEMP 99.3
[2018-09-16 17:42] LABS: BASO # 0.1 (0.0-0.2); BASO % 0.3 % (0.0-2.0); EOS % 0.1 % (0-4.0); GRAN # 12.8 (1.4-6.5); GRAN % 80.1 % (42.2-75.2); HEMOGLOBIN 11.8 g/dl (12.5-16.0); LYMPH # 1.6 (1.2-3.4); LYMPH % 10.1 % (20.0-51.0); MEAN CELL VOLUME 90 fl (80.0-100.0); MEAN CORPUSCULAR HEMOGLOBIN 29 pg (27.0-31.0); MEAN CORPUSCULAR HGB CONC 32 g/dl (33.0-37.0); MEAN PLATELET VOLUME 9.5 fl (7.4-10.4); MONO # 0.8 (0.1-0.6); MONO % 4.8 % (1.7-9.3); PLATELET COUNT 275 K/mm3 (130-400); RED BLOOD COUNT 4.09 M/mm3 (4.10-5.30); REDCELL DISTRIBUTION WIDTH-CV 14.6 % (11.5-14.5)
[2018-09-16 17:44] LABS: ALBUMIN 4.2 gm/dL (3.5-5.0); BILIRUBIN,TOTAL 0.2 mg/dL (0.0-1.0); CREATININE, serum 0.77 (0.52-1.25); POTASSIUM 4.5 mmol/L (3.4-5.0); TOTAL PROTEIN 6.9 gm/dL (6.4-8.2)
[2018-09-16 17:46] LABS: HEMATOCRIT 36.6 % (37.0-47.0)
[2018-09-16 18:18] LABS: ERYTHROCYTE SEDIMENTATION RATE 5 mm/hr (0-30)
[2018-09-16 19:08] VITALS: PULSE 80
== END 2018-09-16 19:08 | disposition home or self-care (01) ==
LOC: COL.ER 16:56
PROVIDERS: Family Medicine
DX: R20.2 Paresthesia of skin (principal)

== ENCOUNTER → 2018-09-18 | Outpatient (CLI) | payer OTHER ==
[2018-09-18 23:56] LABS: RHEUMATOID FACTOR-SCREEN <15 IU/mL (0-29)
[2018-09-19 08:36] LABS: LYME DISEASE ANTIBODIES Negative (Negative)
== END ==
LOC: COL.LAB 08:48
PROVIDERS: Nurse Practitioner Family
DX: R53.1 Weakness (principal); R51 Headache

== ENCOUNTER → 2018-10-03 | Outpatient (CLI) | payer OTHER | LOC: COL.RAD 12:38 | DX: R51 Headache (principal); R20.2 Paresthesia of skin ==

== ENCOUNTER → 2018-11-04 | Outpatient (CLI) | payer OTHER | LOC: COL.LAB 12:37 | DX: R51 Headache (principal); R20.0 Anesthesia of skin; R20.2 Paresthesia of skin; R90.89 Other abnormal findings on diagnostic imaging of central nervous system ==

== ENCOUNTER 2018-11-11 09:13 | Emergency (ER) | payer OTHER ==
[~2018-11-11] VITALS: Ht 154.9 cm; Wt 78.2 kg
[2018-11-11 09:28] VITALS: TEMP 98.2
[2018-11-11 10:02] LABS: ALANINE AMINOTRANSFERASE 35 U/L (9-52); ALBUMIN 3.9 gm/dL (3.5-5.0); ALKALINE PHOSPHATASE 98 U/L (50-136); ANION GAP 10 mmol/L (7-16); AST,SGOT 44 U/L (15-37); BILIRUBIN,TOTAL 0.2 mg/dL (0.0-1.0); BLOOD UREA NITROGEN 12 mg/dL (7-17); CALCIUM 9.2 mg/dL (8.4-10.2); CARBON DIOXIDE 24 mmol/L (22-30); CHLORIDE 104 mmol/L (98-107); CREATININE, serum 0.73 (0.52-1.25); GLUCOSE 87 mg/dL (74-106); LIPASE 114 U/L (23-300); POTASSIUM 4.1 mmol/L (3.4-5.0); SODIUM 138 mmol/L (137-145); TOTAL PROTEIN 6.7 gm/dL (6.4-8.2)
[2018-11-11 10:15] LABS: TROPONIN-I < 0.012 ng/mL (0.000-0.035)
[2018-11-11 10:20] LABS: HEMOGLOBIN 11.5 g/dl (12.5-16.0); MEAN CELL VOLUME 88 fl (80.0-100.0); MEAN CORPUSCULAR HEMOGLOBIN 29 pg (27.0-31.0); MEAN CORPUSCULAR HGB CONC 33 g/dl (33.0-37.0); MEAN PLATELET VOLUME 9.8 fl (7.4-10.4); PLATELET COUNT 293 K/mm3 (130-400); RED BLOOD COUNT 3.96 M/mm3 (4.10-5.30); REDCELL DISTRIBUTION WIDTH-CV 13.2 % (11.5-14.5)
[2018-11-11 10:41] LABS: HEMATOCRIT 34.8 % (37.0-47.0)
[2018-11-11 10:46] LABS: BAND 1 % (0-10); EOSINOPHIL 3 % (0-4); HYPOCHROMIA 2+; LYMPHOCYTE 32 % (20.0-51.0); NEUTROPHILS 58 % (42.0-75.2); PLATELET ESTIMATE NORMAL (NORMAL)
[2018-11-11 11:01] LABS: COLLECTION METHOD CLEAN CATCH
[2018-11-11 11:12] LABS: PH 6 (5-8); SQUAMOUS EPITHELIAL 0-2 /hpf; URINE APPEARANCE Clear; URINE BACTERIA None Seen /hpf; URINE BILIRUBIN Negative (NEGATIVE); URINE BLOOD 3+ (NEGATIVE); URINE COLOR Colorless; URINE GLUCOSE Negative (NEGATIVE); URINE KETONE Negative (NEGATIVE); URINE LEUKOCYTE ESTERASE Negative (NEGATIVE); URINE NITRATE Negative (NEGATIVE); URINE PROTEIN(semi-quant) Negative (NEGATIVE); URINE RBC 20-50 /hpf; URINE UROBILINOGEN Negative (NEGATIVE)
[2018-11-11 12:27] VITALS: BP 118/73; PULSE 82
== END 2018-11-11 12:27 | disposition home or self-care (01) ==
LOC: COL.ER 09:13
PROVIDERS: Family Medicine; Physician Assistant
DX: R07.89 Other chest pain (principal); Z90.49 Acquired absence of other specified parts of digestive tract; Z88.5 Allergy status to narcotic agent
CPT/HCPCS: J7030; Q9967

== ENCOUNTER → 2018-11-19 | Outpatient (CLI) | payer SELFPAY ==
[2018-11-19 10:58] LABS: COLLECTION METHOD CLEAN CATCH
[2018-11-19 11:19] LABS: PH 6 (5-8); SQUAMOUS EPITHELIAL 0-2 /hpf; URINE APPEARANCE Clear; URINE BACTERIA None Seen /hpf; URINE BILIRUBIN Negative (NEGATIVE); URINE BLOOD 2+ (NEGATIVE); URINE COLOR Colorless; URINE GLUCOSE Negative (NEGATIVE); URINE KETONE Negative (NEGATIVE); URINE LEUKOCYTE ESTERASE Negative (NEGATIVE); URINE NITRATE Negative (NEGATIVE); URINE PROTEIN(semi-quant) Negative (NEGATIVE); URINE RBC 0-2 /hpf; URINE UROBILINOGEN Negative (NEGATIVE); URINE WBC None Seen /hpf
[2018-11-19 23:31] LABS: HEPATITIS B SURFACE ANTIGEN Negative (Negative); HEPATITIS C VIRUS ANTIBODY Negative (Negative)
[2018-11-20 07:00] LABS: COMPLEMENT-C3 177 mg/dL (79-152); COMPLEMENT-C4 31 mg/dL (18-55)
[2018-11-21 00:56] LABS: ANTI SMITH AB 10 U/mL (0-99); ANTI-RIBONUCLEIC PROTEIN AB 20 U/mL (0-99); SJOGRENS SSB 2 U/mL (0-99)
[2018-11-21 11:00] LABS: ANTI-JO1 AUTOANTIBODY XXX; ANTISCLERODERMA-70 AB XXX; CENTROMERE ANTIBODIES XXX
[2018-11-21 13:57] LABS: ALDOLASE 5.9 U/L (<7.7)
== END ==
LOC: COL.RAD 09:02 → COL.LAB 09:02 → COL.RAD 09:30
PROVIDERS: Psychiatry & Neurology Neurology
DX: M47.812 Spondylosis without myelopathy or radiculopathy, cervical region (principal); R76.0 Raised antibody titer; R53.1 Weakness; R79.9 Abnormal finding of blood chemistry, unspecified

== ENCOUNTER → 2018-12-23 | Outpatient (CLI) | payer SELFPAY ==
[2018-12-23 12:40] LABS: COLLECTION METHOD CLEAN CATCH
[2018-12-23 12:44] LABS: MEAN CELL VOLUME 88 fl (80.0-100.0); MEAN CORPUSCULAR HEMOGLOBIN 29 pg (27.0-31.0); MEAN CORPUSCULAR HGB CONC 33 g/dl (33.0-37.0); MEAN PLATELET VOLUME 9.7 fl (7.4-10.4); PLATELET COUNT 306 K/mm3 (130-400); RED BLOOD COUNT 4.15 M/mm3 (4.10-5.30); REDCELL DISTRIBUTION WIDTH-CV 12.1 % (11.5-14.5)
[2018-12-23 12:45] LABS: HEMATOCRIT 36.4 % (37.0-47.0)
[2018-12-23 12:48] LABS: PH 5 (5-8); SQUAMOUS EPITHELIAL 0-2 /hpf; URINE APPEARANCE Clear; URINE BACTERIA None Seen /hpf; URINE BILIRUBIN Negative (NEGATIVE); URINE BLOOD 2+ (NEGATIVE); URINE COLOR Straw; URINE GLUCOSE Negative (NEGATIVE); URINE KETONE Negative (NEGATIVE); URINE LEUKOCYTE ESTERASE Negative (NEGATIVE); URINE NITRATE Negative (NEGATIVE); URINE PROTEIN(semi-quant) Negative (NEGATIVE); URINE RBC 0-2 /hpf; URINE UROBILINOGEN Negative (NEGATIVE); URINE WBC 0-2 /hpf
[2018-12-23 12:50] LABS: INR 0.9 (0.8-3.0); PROTHROMBIN TIME 10.7 SECONDS (9.7-12.8)
[2018-12-23 12:52] LABS: PARTIAL THROMBOPLASTIN TIME 29.9 SECONDS (26.0-37.0)
[2018-12-23 12:56] LABS: ALBUMIN 4.2 gm/dL (3.5-5.0); BILIRUBIN,TOTAL 0.2 mg/dL (0.0-1.0); CALCIUM 9.5 mg/dL (8.4-10.2); CREATININE, serum 0.87 (0.52-1.25); POTASSIUM 4.3 mmol/L (3.4-5.0); TOTAL PROTEIN 7.1 gm/dL (6.4-8.2)
[2018-12-23 13:25] LABS: THYROID STIMULATING HORMONE 1.84 uIU/mL (0.465-4.680)
== END ==
LOC: COL.RAD 10:49 → COL.CARD 10:49
DX: R06.02 Shortness of breath (principal); N93.8 Other specified abnormal uterine and vaginal bleeding

== ENCOUNTER → 2019-02-06 | Outpatient (CLI) | payer OTHER ==
[2019-02-06 09:44] LABS: COLLECTION METHOD CLEAN CATCH
[2019-02-06 09:55] LABS: PH 7 (5-8); SQUAMOUS EPITHELIAL 0-2 /hpf; URINE APPEARANCE Clear; URINE BACTERIA None Seen /hpf; URINE BILIRUBIN Negative (NEGATIVE); URINE BLOOD Negative (NEGATIVE); URINE COLOR Colorless; URINE GLUCOSE Negative (NEGATIVE); URINE KETONE Negative (NEGATIVE); URINE LEUKOCYTE ESTERASE 1+ (NEGATIVE); URINE NITRATE Negative (NEGATIVE); URINE PROTEIN(semi-quant) Negative (NEGATIVE); URINE RBC 0-2 /hpf; URINE UROBILINOGEN Negative (NEGATIVE)
[2019-02-06 10:20] LABS: C-REACTIVE PROTEIN 0.5 mg/dL (0.0-0.9)
[2019-02-06 10:35] LABS: THYROID STIMULATING HORMONE 0.772 uIU/mL (0.465-4.680)
== END ==
LOC: COL.LAB 05-24 07:51
DX: R53.1 Weakness (principal); R76.0 Raised antibody titer; R79.9 Abnormal finding of blood chemistry, unspecified; E55.9 Vitamin D deficiency, unspecified

== ENCOUNTER 2019-02-18 09:24 | Day surgery (SDC) | payer OTHER ==
[~2019-02-18] VITALS: Ht 154.9 cm; Wt 75.2 kg
--- NOTE | 2019-02-18 10:11 | NUR ---
Spoke with Remberto Velásquez CRNA, regarding pt's history of adverse side effects of Reglan. He gave verbal order to DC reglan.
[2019-02-18] MEDS ORDERED: ZYRTEC 10MG10 MG PO (10:41)
[2019-02-18] MEDS ORDERED: ADVIL200 MG PO (10:44)
[2019-02-18] MEDS ORDERED: MAGNESIUM500 MG PO (10:45)
[2019-02-18] MEDS ORDERED: VITAMIN D31000 IU PO (10:47)
[2019-02-18 11:19] VITALS: BP 134/69; PULSE 84; TEMP 97.8
[2019-02-18 13:24] VITALS: BP 126/69; PULSE 97; TEMP 97.6
--- NOTE | 2019-02-18 13:24 | NUR ---
[place] [facility] [place] with [employer]. Pt awake, alert, oriented and cheerful. She reports 9/10 pain in head still (see note prior to surgery regarding pain). Grape juice, per patient request, at bedside and call light within reach. VSS and WNL. Surgical wound clean, dry and intact.
[2019-02-18 13:30] VITALS: BP 122/74; PULSE 88
--- NOTE | 2019-02-18 13:40 | NUR ---
Pt enjoying grape juice without nausea/vomiting. Pt requesting some medication for pain. VSS WNL, would clean dry and intact.
[2019-02-18 13:45] VITALS: BP 124/68; PULSE 78
--- NOTE | 2019-02-18 13:45 | NUR ---
Ibuprofen given per pt's request and given with crackers. Pt tolerated crackers well without N/V. VSS and WNL and wound clean, dry, and intact.
[2019-02-18 14:15] VITALS: BP 131/68; PULSE 94
--- NOTE | 2019-02-18 14:15 | NUR ---
Pt up to bathroom with bowel movement/void. Pt denies N/V or dizziness. She drank glass of grape juice with crackers. VSS and WNL. Surgical wound no changes.
--- NOTE | 2019-02-18 14:20 | NUR ---
Pt states that she is feeling well, and she is requesting to change her clothes and go home. She reports her pain in her head continues with little difference from ibuprofen, but she also states that she has these headaches chronically, and sometimes ibuprofen doesn't help. She states that the pain level is bearable at this time. Reviewed discharge instructions with patient and with sonJed including date/time of follow up appointment with Dr. German as well as indicators in which to call the doctor or go to ED. Pt agrees with plan and expresses understanding of the plan. Vital signs are stable and WNL, wound continues to be clean, dry, and intact without redness. Pt states she feels "just fine", and she meet criteria for discharge.
--- NOTE | 2019-02-18 14:36 | NUR ---
Pt discharged to home with son via private car. Pt escorted to patient pickup with RN and in wheelchair.
== END 2019-02-18 14:36 | disposition home or self-care (01) ==
LOC: SDCO 09:24
DX: G44.89 Other headache syndrome (principal); K21.9 Gastro-esophageal reflux disease without esophagitis; F41.9 Anxiety disorder, unspecified; F32.9 Major depressive disorder, single episode, unspecified; K31.84 Gastroparesis; Z90.710 Acquired absence of both cervix and uterus; Z98.51 Tubal ligation status; Z90.49 Acquired absence of other specified parts of digestive tract; Z79.899 Other long term (current) drug therapy; K31.89 Other diseases of stomach and duodenum; N18.9 Chronic kidney disease, unspecified; Z80.1 Family history of malignant neoplasm of trachea, bronchus and lung; Z80.8 Family history of malignant neoplasm of other organs or systems
CPT/HCPCS: J2704; J7120

== ENCOUNTER 2019-02-26 07:07 | Emergency (ER) | payer OTHER ==
[~2019-02-26] VITALS: Ht 154.9 cm; Wt 75.0 kg
[~2019-02-26 07:07] MED LIST changes: +ADVIL200 MG PO; +MAGNESIUM500 MG PO; +VITAMIN D31000 IU PO
[2019-02-26 07:09] VITALS: BP 144/82; PULSE 105; TEMP 98.2
[2019-02-26] MEDS ORDERED: AMOXICILLIN 8751 TAB PO (07:23)
== END 2019-02-26 07:27 | disposition home or self-care (01) ==
LOC: COL.ER 07:07
DX: H66.91 Otitis media, unspecified, right ear (principal); Z90.710 Acquired absence of both cervix and uterus

== ENCOUNTER → 2019-03-19 | Outpatient (CLI) | payer OTHER | LOC: COL.LAB 08:57 | DX: G24.01 Drug induced subacute dyskinesia (principal); E55.9 Vitamin D deficiency, unspecified ==

== ENCOUNTER → 2019-04-11 | Outpatient (CLI) | payer OTHER | LOC: COL.LAB 14:11 | DX: L65.9 Nonscarring hair loss, unspecified (principal); M26.622 Arthralgia of left temporomandibular joint; R23.4 Changes in skin texture; M25.361 Other instability, right knee; R51 Headache ==

== ENCOUNTER → 2019-04-29 | Outpatient (CLI) | payer SELFPAY | LOC: MHCPAIN 08:48 | DX: M47.812 Spondylosis without myelopathy or radiculopathy, cervical region (principal); R51 Headache | CPT/HCPCS: G0463 ==

== ENCOUNTER → 2019-05-13 | Outpatient (CLI) | payer OTHER | LOC: COL.CARD 05-07 11:20 | DX: Z51.81 Encounter for therapeutic drug level monitoring (principal) ==

== ENCOUNTER → 2019-06-19 | Outpatient (CLI) | payer SELFPAY | LOC: ZLAB.FHCC 16:12 | DX: Z01.89 Encounter for other specified special examinations (principal) ==

== ENCOUNTER → 2019-07-03 | Outpatient (CLI) | payer SELFPAY | LOC: COL.RAD 11:55 | DX: R05 Cough (principal) ==

== ENCOUNTER 2019-08-02 06:11 | Emergency (ER) | payer SELFPAY ==
[~2019-08-02] VITALS: Ht 154.9 cm; Wt 75.5 kg
[2019-08-02 06:20] VITALS: BP 143/68; TEMP 97.2
[2019-08-02 08:34] VITALS: PULSE 85
== END 2019-08-02 08:34 | disposition home or self-care (01) ==
LOC: COL.ER 06:11
DX: R51 Headache (principal); Z90.89 Acquired absence of other organs
CPT/HCPCS: J1100; J1200; J2405; J3010; J7030

== ENCOUNTER 2019-08-11 14:36 | Emergency (ER) | payer SELFPAY ==
[~2019-08-11] VITALS: Ht 154.9 cm; Wt 75.5 kg
[2019-08-11 14:53] VITALS: BP 145/73; PULSE 107; TEMP 96.9
== END 2019-08-11 19:47 | disposition left against medical advice (07) ==
LOC: COL.ER 14:36
DX: G43.909 Migraine, unspecified, not intractable, without status migrainosus (principal); Z79.1 Long term (current) use of non-steroidal anti-inflammatories (NSAID)

== ENCOUNTER → 2019-08-14 | Outpatient (CLI) | payer SELFPAY | LOC: ZLAB.FHCC 17:16 | DX: Z01.89 Encounter for other specified special examinations (principal) ==

== ENCOUNTER → 2019-10-08 | Outpatient (CLI) | payer OTHER | LOC: COL.LAB 15:01 | DX: E55.9 Vitamin D deficiency, unspecified (principal) ==

== ENCOUNTER → 2020-03-03 | Outpatient (CLI) | payer SELFPAY ==
[2020-03-03 09:11] LABS: ALBUMIN 4.7 gm/dL (3.5-5.0); BILIRUBIN,TOTAL 0.3 mg/dL (0.0-1.0); CALCIUM 9.2 mg/dL (8.4-10.2); HEMATOCRIT 38.1 % (37.0-47.0); HEMOGLOBIN 12.4 g/dl (12.5-16.0); MEAN CELL VOLUME 85 fl (80.0-100.0); MEAN CORPUSCULAR HEMOGLOBIN 28 pg (27.0-31.0); MEAN CORPUSCULAR HGB CONC 33 g/dl (33.0-37.0); MEAN PLATELET VOLUME 9.5 fl (7.4-10.4); PLATELET COUNT 337 K/mm3 (130-400); POTASSIUM 4.1 mmol/L (3.4-5.0); RED BLOOD COUNT 4.47 M/mm3 (4.10-5.30); REDCELL DISTRIBUTION WIDTH-CV 13.8 % (11.5-14.5); TOTAL PROTEIN 7.7 gm/dL (6.4-8.2)
[2020-03-03 21:09] LABS: FOLATE (FOLIC ACID) 13.4 ng/mL (7.0-31.4)
== END ==
LOC: COL.LAB 08:20
PROVIDERS: Psychiatry & Neurology Neurology
DX: G44.51 Hemicrania continua (principal); G47.19 Other hypersomnia; G47.69 Other sleep related movement disorders; G25.81 Restless legs syndrome

== ENCOUNTER → 2020-06-08 | Outpatient (CLI) | payer OTHER | LOC: COL.RAD 07:30 | DX: G37.9 Demyelinating disease of central nervous system, unspecified (principal); R90.82 White matter disease, unspecified; I67.82 Cerebral ischemia; I77.6 Arteritis, unspecified; E55.9 Vitamin D deficiency, unspecified; G47.19 Other hypersomnia; G44.51 Hemicrania continua; G25.81 Restless legs syndrome; R53.83 Other fatigue ==

== ENCOUNTER → 2020-06-24 | Outpatient (CLI) | payer OTHER | LOC: COL.LAB 07:53 | DX: G62.9 Polyneuropathy, unspecified (principal) ==

== ENCOUNTER 2021-04-26 07:37 | Day surgery (SDC) | payer SELFPAY ==
[~2021-04-26] VITALS: Ht 154.9 cm; Wt 73.1 kg
[2021-04-26 08:16] VITALS: BP 117/79; PULSE 85; TEMP 97.7
[2021-04-26] MEDS ORDERED: VITAMIN C500 MG PO (09:11)
[2021-04-26] MEDS ORDERED: BIOTIN10000 MC1 PO (09:11)
[2021-04-26] MEDS ORDERED: BLACK COHOSH40 MG PO (09:12)
[2021-04-26] MEDS ORDERED: NATURAL MAGNES200 MG PO (09:12)
[2021-04-26] MEDS ORDERED: ASPIRIN 81M81 MG/TA2 PO (09:13)
[2021-04-26] MEDS ORDERED: TOPAMAX50 MG PO (09:13)
[2021-04-26] MEDS ORDERED: AMOVIG PO (09:14)
[2021-04-26] MEDS ORDERED: IRON TABLETS325 MG PO (09:15)
[2021-04-26 09:45] VITALS: BP 118/84; PULSE 97; TEMP 97.6
--- NOTE | 2021-04-26 09:45 | NUR ---
PATIENT BROUGHT BACK TO [facility] 3 VIA CART. AMBULATED TO BATHROOM WITHOUT DIFFICULTY. PATIENT CONTINUES TO HAVE LOOSE STOOLS, PREP WAS NOT SUCCESSFUL. UNABLE TO COMPLETE COLONOSOPY. PLACED ON MONITORS, VITAL SIGNS STABLE. DENIES PAIN OR NAUSEA. FREQUENTLY NEEDS TO USE RESTROOM. REPORT RECIEVED FROM JOSE PEREZ. WARM BLANKET PROVIDED, WILL MONITOR. 1000- VITAL SIGNS STABLE. TOLERATING WATER WITHOUT DIFFICULTY. 1100- PATIENT AWAITING TO SPEAK WITH DR. DIXON. WOULD LIKE TO GO HOME. 1045- IV REMOVED, PATIENT TO GET DRESSED AT THIS TIME. DR. DIXON ATTEMPTED TO SPEAK WITH PATIENT, IN BATHROOM. WILL COME BACK LATER. 1115- DR. DIXON AT BEDSIDE TO REVIEW RESULTS. PATIENT TO GET DRESSED AT THIS TIME. 1135- DISCHARGE INSTRUCTIONS REVIWED WITH PATIENT. BROUGHT DOWN TO LOBBY VIA WHEEL CHAIR. SON AT FRONT DOOR. ASSISTED INTO VEHICLE. ALL BELONGINGS IN HAND.
[2021-04-26 10:00] VITALS: BP 122/96; PULSE 94
[2021-04-26 10:15] VITALS: BP 117/81; PULSE 87
[2021-04-26 10:30] VITALS: BP 128/68; PULSE 95
[2021-04-26 11:00] VITALS: BP 133/72; PULSE 92
== END 2021-04-26 11:35 | disposition home or self-care (01) ==
LOC: SDCO 07:37
DX: R10.32 Left lower quadrant pain (principal); R19.4 Change in bowel habit; R19.7 Diarrhea, unspecified; K21.9 Gastro-esophageal reflux disease without esophagitis; F32.A Depression, unspecified; F41.9 Anxiety disorder, unspecified; Z79.899 Other long term (current) drug therapy
CPT/HCPCS: J2704; J7030

== ENCOUNTER → 2021-08-19 | Outpatient (CLI) | payer SELFPAY ==
[~2021-08-19] MED LIST changes: +AMOVIG PO; +ASPIRIN 81M81 MG/TA2 PO; +BIOTIN10000 MC1 PO; +BLACK COHOSH40 MG PO; +IRON TABLETS325 MG PO; +NATURAL MAGNES200 MG PO; +TOPAMAX50 MG PO; +VITAMIN C500 MG PO
== END ==
LOC: COL.RAD 07:53
DX: M19.011 Primary osteoarthritis, right shoulder (principal)